=== PATIENT | female | born 1995 | race Caucasian/White ===

== ENCOUNTER 2019-04-08 13:44 | Emergency (ER) | payer OTHER ==
[~2019-04-08] VITALS: Ht 162.6 cm; Wt 108.1 kg
[2019-04-08 13:48] VITALS: BP 141/79; Ht 162.6 cm; Wt 108.1 kg
== END 2019-04-08 14:42 | disposition home or self-care (01) ==
LOC: ED 13:44
DX: H61.21 Impacted cerumen, right ear (principal); H91.91 Unspecified hearing loss, right ear; F32.9 Major depressive disorder, single episode, unspecified

== ENCOUNTER → 2019-04-25 | Outpatient (CLI) | payer OTHER ==
[2019-04-25 13:23] LABS: ALBUMIN 3.9 g/dL (3.4-5.0); ALKALINE PHOSPHATASE 74 U/L (46-116); ALT/SGPT 67 U/L (14-59); AST/SGOT 27 U/L (15-37); BILIRUBIN TOTAL 0.5 mg/dL (0.20-1.00); CALCIUM 9.4 mg/dL (8.5-10.1); CARBON DIOXIDE 31.6 mmol/L (21-32); CHLORIDE SERUM 102 mmol/L (98-107); CHOLESTEROL 262 mg/dL (<200); CHOLESTEROL/HDL RATIO 6.2; CREATININE SERUM 0.8 mg/dL (0.6-1.0); GFR1 > 60 mL/min; GLUCOSE SERUM 86 mg/dL (74-106); HDL CHOLESTEROL 42 mg/dL (40-60); LACTIC DEHYDROGENASE (LDH) 218 U/L (100-190); POTASSIUM SERUM 4.6 mmol/L (3.5-5.1); SODIUM SERUM 139 mmol/L (136-145); TOTAL PROTEIN, SERUM 8.3 g/dL (6.4-8.2); TRIGLYCERIDES 248 mg/dL (<150)
[2019-04-25 13:30] LABS: FREE T4 0.92 ng/dL (0.76-1.46); FREE THYROXINE INDEX 2.2 ug/dL (1.4-4.5)
[2019-04-25 13:31] LABS: T3 TOTAL 1.36 ng/mL
[2019-04-25 13:39] LABS: IRON 64 ug/dL (50-170); TOTAL IRON BINDING CAPACITY 319 ug/dL (250-450)
== END | disposition home or self-care (01) ==
LOC: LB 12:26
DX: I10 Essential (primary) hypertension (principal); D64.9 Anemia, unspecified; E03.9 Hypothyroidism, unspecified; E55.9 Vitamin D deficiency, unspecified; E11.9 Type 2 diabetes mellitus without complications
CPT/HCPCS: 84439

== ENCOUNTER 2019-09-08 12:04 | Emergency (ER) | payer OTHER ==
[~2019-09-08] VITALS: Ht 162.6 cm; Wt 108.6 kg
[2019-09-08 12:18] VITALS: Ht 162.6 cm; Wt 108.6 kg
[2019-09-08 12:56] LABS: CALCIUM 9.1 mg/dL (8.5-10.1); CARBON DIOXIDE 28.3 mmol/L (21-32); CHLORIDE SERUM 101 mmol/L (98-107); CREATININE SERUM 0.7 mg/dL (0.6-1.0); GFR1 > 60 mL/min; GLUCOSE SERUM 100 mg/dL (74-106); POTASSIUM SERUM 3.9 mmol/L (3.5-5.1); SODIUM SERUM 137 mmol/L (136-145)
[2019-09-08 13:00] LABS: ALBUMIN 3.7 g/dL (3.4-5.0); ALKALINE PHOSPHATASE 79 U/L (46-116); ALT/SGPT 41 U/L (14-59); AST/SGOT 16 U/L (15-37); BILIRUBIN TOTAL 1.63 mg/dL (0.20-1.00)
[2019-09-08 13:08] LABS: TOTAL PROTEIN, SERUM 8.7 g/dL (6.4-8.2)
[2019-09-08 13:41] LABS: RED CELL DISTRIBUTION WIDTH 13.6 % (11.5-14.5)
[2019-09-08 13:46] LABS: BASOPHIL % 0.4 % (0-2); PLATELET COUNT 252 x10^3mcL (130-400)
[2019-09-08 14:50] VITALS: BP 125/84
== END 2019-09-08 14:50 | disposition home or self-care (01) ==
LOC: ED 12:04
PROVIDERS: Emergency Medicine
DX: J03.90 Acute tonsillitis, unspecified (principal); F32.9 Major depressive disorder, single episode, unspecified
CPT/HCPCS: 86308; J1100; J1885; J7030

== ENCOUNTER 2019-10-05 11:10 | Emergency (ER) | payer OTHER ==
[~2019-10-05] VITALS: Ht 162.6 cm; Wt 112.0 kg
[2019-10-05 11:20] VITALS: BP 148/99; Ht 162.6 cm; Wt 112.0 kg
== END 2019-10-05 12:00 | disposition home or self-care (01) ==
LOC: ED 11:10
DX: J30.9 Allergic rhinitis, unspecified (principal); R42 Dizziness and giddiness; F32.9 Major depressive disorder, single episode, unspecified